=== PATIENT | female | born 1995 | race Caucasian/White ===

== ENCOUNTER → 2022-05-24 09:17 | Outpatient (CLI) | payer OTHER, SELFPAY | PROVIDERS: PCP Registered Nurse; Visit Provider Registered Nurse | DX: R30.0 Dysuria (principal) | CPT/HCPCS: 87077; 87086; 87186 ==

== ENCOUNTER → 2022-08-11 07:49 | Outpatient (CLI) | payer OTHER, SELFPAY | PROVIDERS: PCP Physician Assistant; Visit Provider Physician Assistant | DX: N39.0 Urinary tract infection, site not specified (principal) | CPT/HCPCS: 87077; 87086; 87147 ==

== ENCOUNTER → 2023-10-20 16:50 | Outpatient (CLI) | payer OTHER, SELFPAY | PROVIDERS: PCP Registered Nurse Diabetes Educator; Visit Provider Registered Nurse Diabetes Educator | DX: N89.8 Other specified noninflammatory disorders of vagina (principal) | CPT/HCPCS: 87210; 87220 ==

== ENCOUNTER → 2023-11-09 14:40 | Outpatient (CLI) | payer OTHER, SELFPAY ==
--- NOTE | 2023-11-09 14:42 | DI.US.S_ITS ---
PROCEDURE: US PELVIC COMPLETE INDICATIONS: DUB TECHNIQUE: Real-time scanning was performed of the pelvic organs, with image documentation. Additional endovaginal scanning was necessary due to incomplete visualization of the adnexal and endometrial structures by transabdominal scanning. COMPARISON: None. FINDINGS: Uterus: Uterus is anteverted and normal in size at 6.8 x 2.9 x 4.7 cm. The myometrium is homogeneous. The endometrium measures 3 mm combined thickness. IUD within the mid to lower uterine segment. Ovaries: The right ovary measures 2.2 x 3.4 x 2.3 cm, with a calculated ovarian volume of 9 cc. The left ovary measures 3.4 x 3.7 x 2.5 cm, with a calculated ovarian volume of 16 cc. The ovaries have a normal sonographic appearance. Less than 12 follicles can be seen in each ovary. No adnexal masses are seen. Other: No pathologic free abdominal or pelvic fluid. IMPRESSION: IUD within the mid to lower uterine segment. Consider adjustment or placement. We strive to produce accurate, complete, and clear reports of imaging services. To assist us in improving patient care, this report was composed using standard report templates and voice recognition software. Therefore, it may contain abnormal punctuation, insertions and/or omissions. Occasional wrong-word or sound-alike substitutions may occur. Though we review the report and make efforts to correct it, we do recommend that the report be read carefully in proper context to recognize any text inaccuracies. Dictated by: Anup Wisdom M.D. on 11/09/2023 at 16:12 Approved by: Anup Wisdom M.D. on 11/09/2023 at 16:14
== END ==
LOC: US 14:41
PROVIDERS: PCP Registered Nurse Diabetes Educator; Referring Provider Registered Nurse Diabetes Educator; Visit Provider Registered Nurse Diabetes Educator
DX: N93.9 Abnormal uterine and vaginal bleeding, unspecified (principal); Z97.5 Presence of (intrauterine) contraceptive device
CPT/HCPCS: 76856

== ENCOUNTER → 2023-12-08 13:02 | Outpatient (CLI) | payer OTHER, SELFPAY ==
[2023-12-08 13:42] LABS: Hemoglobin A1C% w Est Avg Glu 4.9 % (4.0-6.0)
[2023-12-08 14:31] LABS: Testosterone 47.1 ng/dL (5.71-77.0)
== END ==
LOC: LAB 13:03
PROVIDERS: PCP Registered Nurse Diabetes Educator; Referring Provider Student in an Organized Health Care Education/Training Program; Visit Provider Student in an Organized Health Care Education/Training Program
DX: E28.2 Polycystic ovarian syndrome (principal)
CPT/HCPCS: 36415; 82397; 83036; 83498; 84403

== ENCOUNTER → 2024-03-01 11:47 | Outpatient (CLI) | payer OTHER, SELFPAY ==
[2024-03-01 13:19] LABS: Add Manual Diff / Slide Review NO; Basophils Absolute Auto 0 /uL (0-100); Basophils Percent Auto 0.2 % (0-2); Eosinophils Absolute Auto 100 /uL (0-450); Eosinophils Percent Auto 2.5 % (2-4); Hemoglobin 14.3 g/dL (12.0-16.0); Lymphocytes Absolute Auto 1300 /uL (1100-4500); Lymphocytes Percent Auto 27.8 % (25-40); Mean Corpuscular HGB Conc 34.1 % (30-36); Mean Corpuscular Hemoglobin 30.7 PG (26-34); Mean Corpuscular Volume 90.2 fL (80-100); Monocytes Absolute Auto 200 /uL (0-900); Neutrophils Absolute Auto 3000 /uL (1500-7000); Neutrophils Percent Auto 64.5 % (50-75); Platelet Count 181 X10^3/uL (150-400); Red Blood Cell Count 4.66 X10^6/uL (4.0-5.2); White Blood Cell Count 4.6 X10^3/uL (4.5-11.0)
[2024-03-01 13:43] LABS: Alanine Aminotransferase 25 IU/L (<35); Albumin 4.7 g/dL (3.5-5.0); Albumin Globulin Ratio 1.6 (1.0-2.8); Alkaline Phosphatase 45 U/L (38-126); Aspartate Aminotransferase 27 IU/L (14-36); BUN Creatinine Ratio 16.3 (6-22); Bilirubin Total 0.4 mg/dL (0.2-1.3); Blood Urea Nitrogen 16 mg/dL (7-17); Calcium 9.6 mg/dL (8.4-10.2); Carbon Dioxide 22 mmol/L (22-32); Chloride 105 mmol/L (98-107); Estimated Glomerular Filt Rate > 60 mL/min (>60); Glucose 89 mg/dL (70-100); HEMOLYSIS < 15 (0-50); Potassium 4.3 mmol/L (3.4-5.1); Sodium 138 mmol/L (137-145); Total Protein 7.7 g/dL (6.3-8.2)
[2024-03-01 13:45] LABS: HEMOLYSIS < 15 (0-50); Iron 146 ug/dL (37-170)
[2024-03-01 13:56] LABS: Percent Iron Saturation 44 % (15-50); Total Iron Binding Capacity 333 ug/dL (265-497); Transferrin 286 mg/dL (206-381)
[2024-03-01 14:00] LABS: Free T3, Triiodothyronine Free 3.22 pg/mL (2.77-5.27); Free T4, Direct Thyroxine 1.22 ng/dL (0.78-2.19)
[2024-03-01 14:14] LABS: Thyroid Stimulating Hormone 1.05 uIU/mL (0.47-4.68)
[2024-03-01 14:33] LABS: Vitamin B12 850 pg/mL (239-931)
== END ==
PROVIDERS: PCP Registered Nurse Diabetes Educator; Referring Provider Physician Assistant; Visit Provider Physician Assistant
DX: R53.83 Other fatigue (principal); H02.539 Eyelid retraction unspecified eye, unspecified lid; G47.9 Sleep disorder, unspecified
CPT/HCPCS: 36415; 80053; 82607; 83519; 83540; 83550; 84439; 84443; 84481; 85025

== ENCOUNTER → 2024-06-14 15:02 | Outpatient (CLI) | payer OTHER, SELFPAY | PROVIDERS: PCP Registered Nurse Diabetes Educator; Referring Provider Registered Nurse Diabetes Educator; Visit Provider Registered Nurse Diabetes Educator | DX: R06.09 Other forms of dyspnea (principal); R07.9 Chest pain, unspecified; R42 Dizziness and giddiness | CPT/HCPCS: 93242; 93244 ==

== ENCOUNTER → 2024-08-10 15:16 | Outpatient (CLI) | payer OTHER, SELFPAY ==
[2024-08-10 21:24] LABS: Urine N gonorrhoeae NOT DETECTED
[2024-08-10 21:26] LABS: Urine Chlamydia NOT DETECTED
== END ==
PROVIDERS: PCP Registered Nurse Diabetes Educator; Visit Provider Student in an Organized Health Care Education/Training Program
DX: Z11.3 Encounter for screening for infections with a predominantly sexual mode of transmission (principal)
CPT/HCPCS: 87491; 87591

== ENCOUNTER → 2024-08-23 13:57 | Outpatient (CLI) | payer OTHER, SELFPAY ==
[2024-08-23 15:23] LABS: Natera Collection Specimen Collected
[2024-08-23 15:34] LABS: Add Manual Diff / Slide Review NO; Basophils Absolute Auto 0 /uL (0-100); Basophils Percent Auto 0.3 % (0-2); Eosinophils Absolute Auto 100 /uL (0-450); Eosinophils Percent Auto 0.9 % (2-4); Hematocrit 39.1 % (36-46); Hemoglobin 13.5 g/dL (12.0-16.0); Lymphocytes Absolute Auto 1400 /uL (1100-4500); Mean Corpuscular HGB Conc 34.5 % (30-36); Mean Corpuscular Hemoglobin 31.1 PG (26-34); Mean Corpuscular Volume 90.2 fL (80-100); Monocytes Absolute Auto 400 /uL (0-900); Neutrophils Absolute Auto 7700 /uL (1500-7000); Neutrophils Percent Auto 79.8 % (50-75); Platelet Count 182 X10^3/uL (150-400); Red Blood Cell Count 4.33 X10^6/uL (4.0-5.2); Red Cell Distribution Width 13.1 % (11.6-14.8); White Blood Cell Count 9.6 X10^3/uL (4.5-11.0)
[2024-08-23 15:41] LABS: Hemoglobin A1C% w Est Avg Glu 4.8 % (4.0-6.0)
[2024-08-24 05:10] LABS: RPR Screen Non Reactive (Non Reactive); Varicella IgG Antibody Reactive (Non Reactive)
[2024-08-24 17:23] LABS: Hepatitis B Surface Antigen NEGATIVE s/c (NEGATIVE)
[2024-08-24 17:36] LABS: HIV 1 & 2 Ab/Ag 4th Gen Combo NEGATIVE (NEGATIVE); Hep C Virus Ab w/Reflex Quant NEGATIVE s/c (NEGATIVE)
== END ==
PROVIDERS: PCP Registered Nurse Diabetes Educator; Referring Provider Student in an Organized Health Care Education/Training Program; Visit Provider Student in an Organized Health Care Education/Training Program
DX: Z34.02 Encounter for supervision of normal first pregnancy, second trimester (principal); E28.2 Polycystic ovarian syndrome
CPT/HCPCS: 36415; 80055; 83036; 86787; 86803; 86850; 86900; 86901; 87086; 87147; 87389

== ENCOUNTER → 2024-09-20 16:48 | Outpatient (CLI) | payer OTHER, SELFPAY | PROVIDERS: PCP Registered Nurse Diabetes Educator; Visit Provider Nurse Practitioner Family | DX: B37.9 Candidiasis, unspecified (principal); R30.0 Dysuria | CPT/HCPCS: 87086; 87210 ==

== ENCOUNTER → 2024-10-16 14:04 | Outpatient (CLI) | payer OTHER, SELFPAY ==
[2024-10-16 20:04] LABS: Appearance Urine UA CLEAR; Bilirubin Urine UA NEGATIVE (NEGATIVE); Color Urine UA YELLOW; Glucose Urine UA NEGATIVE (Negative); Ketones Urine UA NEGATIVE (NEGATIVE); Leukocyte Esterase Urine UA NEGATIVE (NEGATIVE); Nitrite Urine UA NEGATIVE (Negative); Occult Blood Urine UA NEGATIVE (Negative); Protein Urine UA NEGATIVE (Negative); Urobilinogen Urine UA 0.2 E.U./dL (0.2)
[2024-10-16 20:08] LABS: pH Urine UA 6.5 (4.5-8.0)
[2024-10-16 20:11] LABS: Bacteria Urine Occasional (0-1); Culture Indicated Urine Cult Not Indicated; RBC Urine 0-1/HPF (0-5/HPF); Squamous Epithelial Cell Urine 0-1 /HPF (0-5/HPF); Urine Volume 10mL (spun); WBC Urine 0-1/HPF (0-5/HPF)
== END ==
PROVIDERS: PCP Registered Nurse Diabetes Educator; Visit Provider Student in an Organized Health Care Education/Training Program
DX: R82.71 Bacteriuria (principal); B37.9 Candidiasis, unspecified
CPT/HCPCS: 81001; 87480; 87510; 87660

== ENCOUNTER → 2024-11-01 14:39 | Outpatient (CLI) | payer OTHER, SELFPAY ==
--- NOTE | 2024-11-01 14:40 | DI.US.S_ITS ---
PROCEDURE: US OB >= 14 WEEKS FETUS INDICATIONS: 20 weeks anatomy scan OUTSIDE/PRIOR DATING DATA: Last menstrual period (LMP): 06/13/2024. LMP-based estimated date of delivery (ANEL): 03/20/2025. First dating scan (date and location): 08/10/2024. Estimated date of delivery (ANEL) from first dating scan: 03/18/2025. The calculations are made using the working ANEL of 03/20/2025. TECHNIQUE: Real-time scanning was performed of the fetus, with image documentation and biometric measurements. Endovaginal scanning: No COMPARISON: None. FINDINGS: General: A single living intrauterine gestation is present. Presentation: Vertex. Placenta: Placental position is posterior , without previa. Amniotic fluid index: 12.5 cm, normal range is 5-24 cm. Single deepest vertical pocket is 4.1 cm. heart rate: 139 beats per minute. Maternal cervical canal: 5.5 cm long. Normal lower limit is 2.5 cm. biometrics: Biparietal diameter: 4.7 cm, 20 week 2 day Head circumference: 18.4 cm, 20 week 5 day Abdominal circumference: 15.4 cm, 20 week 4 day Femur length: 3.4 cm, 20 week 5 day Clinically estimated gestational age: 20 week 1 day Composite gestational age from present scan: 20 week 4 day Estimated weight and percentile: 366 g, 73 percentile Anatomic survey: Neuro: Ventricles are non-dilated at less than 10 mm. Cisterna magna is normal at 3-11 mm. Cerebellum is normal in size and morphology. Nuchal skin fold: Normal at less than 6 mm between 14-21 weeks gestational age. Face: Nose and lips, facial profile are normal. Spine: No evidence for spina bifida. Heart: 4-chambered heart is present, with normal ventricular outflow tracts. Diaphragm: Diaphragm is intact. Stomach: Left-sided stomach is present. Kidneys: No hydronephrosis. Normal is less than 5 mm in 2nd trimester, less than 7 mm in 3rd trimester. Cord: 3-vessel cord has orthotopic insertion. Bladder: Normal in size. Extremities: All 4 extremities identified. IMPRESSION: Single live intrauterine consistent with 20 week 4 day gestation by current ultrasound. Normal anatomic survey Approved by: Mike Mcdowell M.D. on 11/02/2024 at 12:39
== END ==
PROVIDERS: PCP Registered Nurse Diabetes Educator; Referring Provider Student in an Organized Health Care Education/Training Program; Visit Provider Student in an Organized Health Care Education/Training Program
DX: Z34.02 Encounter for supervision of normal first pregnancy, second trimester (principal); Z3A.20 20 weeks gestation of pregnancy
CPT/HCPCS: 76811

== ENCOUNTER → 2024-11-14 14:03 | Outpatient (CLI) | payer OTHER, SELFPAY ==
[2024-11-16 20:11] LABS: AFP Value 71.4 ng/mL (.); Insulin Dep Diabetes No (.); OSBR Risk 1IN 7850 (.); Results Report (.); Test Results *Screen Negative* (.)
== END ==
LOC: LAB 14:04
PROVIDERS: Obstetrics & Gynecology; PCP Registered Nurse Diabetes Educator; Referring Provider Registered Nurse Diabetes Educator; Visit Provider Emergency Medicine
DX: Z36.0 Encounter for antenatal screening for chromosomal anomalies (principal)
CPT/HCPCS: 36415; 82105

== ENCOUNTER → 2024-12-25 11:35 | Outpatient (CLI) | payer OTHER, SELFPAY ==
[2024-12-25 13:41] LABS: Add Manual Diff / Slide Review NO; Basophils Absolute Auto 0 /uL (0-100); Eosinophils Absolute Auto 100 /uL (0-450); Eosinophils Percent Auto 0.9 % (2-4); Hematocrit 38.2 % (36-46); Hemoglobin 13.2 g/dL (12.0-16.0); Lymphocytes Absolute Auto 1100 /uL (1100-4500); Lymphocytes Percent Auto 10.5 % (25-40); Mean Corpuscular HGB Conc 34.5 % (30-36); Mean Corpuscular Hemoglobin 32.3 PG (26-34); Mean Corpuscular Volume 93.7 fL (80-100); Monocytes Absolute Auto 500 /uL (0-900); Monocytes Percent Auto 4.7 % (3-14); Neutrophils Absolute Auto 8500 /uL (1500-7000); Neutrophils Percent Auto 83.9 % (50-75); Platelet Count 146 X10^3/uL (150-400); Red Blood Cell Count 4.08 X10^6/uL (4.0-5.2); Red Cell Distribution Width 13.6 % (11.6-14.8); White Blood Cell Count 10.1 X10^3/uL (4.5-11.0)
[2024-12-25 15:01] LABS: GTT (PREG) 1 Hour PP 50gm Dose 104 mg/dL (76-139)
== END ==
LOC: LAB 11:36
PROVIDERS: PCP Registered Nurse Diabetes Educator; Referring Provider Registered Nurse Diabetes Educator; Visit Provider Obstetrics & Gynecology
DX: Z34.02 Encounter for supervision of normal first pregnancy, second trimester (principal); Z3A.26 26 weeks gestation of pregnancy
CPT/HCPCS: 36415; 82950; 85025

== ENCOUNTER → 2025-01-03 16:11 | Outpatient (CLI) | payer OTHER, SELFPAY | PROVIDERS: PCP Registered Nurse Diabetes Educator; Visit Provider Obstetrics & Gynecology | DX: O23.593 Infection of other part of genital tract in pregnancy, third trimester (principal) | CPT/HCPCS: 87480; 87510; 87660 ==

== ENCOUNTER → 2025-01-17 14:32 | Outpatient (CLI) | payer OTHER, SELFPAY ==
[2025-01-17 15:03] LABS: Add Manual Diff / Slide Review NO; Hematocrit 39.4 % (36-46); Hemoglobin 13.5 g/dL (12.0-16.0); Lymphocytes Absolute Auto 1300 /uL (1100-4500); Mean Corpuscular HGB Conc 34.3 % (30-36); Mean Corpuscular Hemoglobin 31.8 PG (26-34); Mean Corpuscular Volume 92.6 fL (80-100); Platelet Count 153 X10^3/uL (150-400)
[2025-01-17 16:03] LABS: Alanine Aminotransferase 23 IU/L (<35); Albumin 3.6 g/dL (3.5-5.0); Albumin Globulin Ratio 1.4 (1.0-2.8); Alkaline Phosphatase 92 U/L (38-126); Blood Urea Nitrogen 17 mg/dL (7-17); Calcium 9.1 mg/dL (8.4-10.2); Carbon Dioxide 17 mmol/L (22-32); Chloride 107 mmol/L (98-107); Estimated Glomerular Filt Rate > 60 mL/min (>60); Globulin 2.6 g/dL (1.7-4.1); Glucose 80 mg/dL (70-99); HEMOLYSIS < 15 (0-50); Potassium 4.0 mmol/L (3.4-5.1); Sodium 133 mmol/L (137-145); Total Protein 6.2 g/dL (6.3-8.2)
[2025-01-17 16:26] LABS: Protein (Total) Urine Random 7 mg/dL (0-12); Protein Creatinine Ratio Urine 0.21 GRAM/24H
== END ==
PROVIDERS: PCP Registered Nurse Diabetes Educator; Referring Provider Obstetrics & Gynecology; Visit Provider Obstetrics & Gynecology
DX: Z34.93 Encounter for supervision of normal pregnancy, unspecified, third trimester (principal); Z3A.31 31 weeks gestation of pregnancy
CPT/HCPCS: 36415; 80053; 82570; 84156; 85025

== ENCOUNTER → 2025-01-30 13:38 | Outpatient (CLI) | payer OTHER, SELFPAY ==
[2025-02-01 12:40] LABS: Trichomoas vaginalis Negative (Negative)
== END ==
PROVIDERS: PCP Registered Nurse Diabetes Educator; Visit Provider Student in an Organized Health Care Education/Training Program
DX: N89.8 Other specified noninflammatory disorders of vagina (principal)
CPT/HCPCS: 87480; 87510; 87660

== ENCOUNTER → 2025-02-06 11:10 | Outpatient (CLI) | payer OTHER, SELFPAY ==
[2025-02-08 09:37] LABS: Mycoplasma genitalium, NAA Negative (Negative)
== END ==
PROVIDERS: PCP Registered Nurse Diabetes Educator; Visit Provider Obstetrics & Gynecology
DX: O23.593 Infection of other part of genital tract in pregnancy, third trimester (principal)
CPT/HCPCS: 87563; 87798

== ENCOUNTER 2025-02-08 20:59 | Emergency (ER) | payer OTHER, SELFPAY ==
[2025-02-08 21:08] VITALS: BP 142/65; PULSE 101; O2SAT 96
[2025-02-08 21:10] VITALS: BP 142/65; PULSE 97; RESP 31; TEMP 36.2; O2SAT 96; BMI 36.9
[2025-02-08 21:14] VITALS: BP 127/56; PULSE 107; O2SAT 95
--- NOTE | 2025-02-08 21:18 | EKG_ITS ---
[address] [address] Test Date: 2025-02-08 Pat Name: Mara Cheng Department: Room: Gender: Female Group Reservations Coordinator: NILDA : 1995 Requested By: Order Number: [id number] Reading MD: Florentino Payne Measurements Intervals [place] Rate: 97 P: 41 AR: 148 QRS: 23 QRSD: 76 T: 27 QT: 336 QTc: 426 Interpretive Statements Normal sinus rhythm Low voltage QRS Cannot rule out Anterior infarct , age undetermined Electronically Signed On 02-09-2025 8:30:12 PDT by Florentino Payne
[2025-02-08 21:22] VITALS: BP 127/56
--- NOTE | 2025-02-08 21:31 | ED.CHESTPAIN ---
HPI - Chest Pain General Chief Complaint: Chest Pain Stated Complaint: Left Side ChestPain, 34wks Preg Time Seen by Provider: 02/08/25 21:31 Source: patient Mode of arrival: Ambulatory History of Present Illness HPI narrative: 30-year-old female patient, otherwise healthy, 1 para 0 at 34 weeks EGA who complains of left-sided pleuritic pain for 36 hours now. No fever, chills or cough. Pain is worse with deep breathing. No injury and no squeezing chest pain. Duration: intermittent Onset: during rest Pain location: left chest Quality: sharp Related Data Home Medications ?Medication ?Instructions ?Recorded ?Confirmed vitamin-ferrous sulfate tab PO 08/08/24 02/06/25 27 mg iron-folic acid 0.8 mg tablet Previous Rx's ?Medication ?Instructions ?Recorded bupropion HCl 300 mg 24 hr tablet, 300 mg PO QAM #90 tabs 04/17/24 extended release (Wellbutrin XL) fluconazole 150 mg tablet 150 mg PO Q3D 2 doses #2 tabs 11/29/24 clotrimazole 1 % vaginal cream 1 appful vaginal BEDTIME #45 grams 12/20/24 (Clotrimazole-7) Allergies Allergy/AdvReac Type Severity Reaction Status Date / Time No Known Drug Allergies Allergy Verified 02/06/25 10:48 Review of Systems Review of Systems ROS Unobtainable: All systems reviewed & are unremarkable except as noted in HPI and below Cardiovascular Cardiovascular: Reports as per HPI, Reports chest pain and Denies dyspnea Respiratory Respiratory: Reports as per HPI, Denies cough and Denies dyspnea Patient History Medical History (Updated 02/08/25 @ 22:48 by Aravind Reyes MD) Maternal excessive weight gain Depression (03/14/16) Migraine without aura PCOS (polycystic ovarian syndrome) Anxiety Surgical History [place] teeth removed (06/22/14) Hx of knee surgery Family History (Updated 08/10/24 @ 15:51 by Bela Woods DO) Father Pre-diabetes Hypertension Sister Seizure disorder Hypoglycemia Granddaughter Scleroderma Heart disease Grandmother Dementia Grandfather Heart disease Aunt Breast cancer Thyroid cancer Aunt Depression Diabetes mellitus Aunt OCD (obsessive compulsive disorder) Uncle Obesity Mother Pre-eclampsia Social History marital status: number of children: 0 household members: spouse lives independently: Yes caregiver/support person: No housing: house pets and animals: No education level: master's degree (education) 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) current occupational exposures/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: Yes (biology 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 w/ dissection) special odette needs: No travel history: recent ([place]) seatbelt use: always helmet use: Yes water heater temp set < 120 deg: Yes working smoke detector in home: Yes fire extinguisher in home: Yes carbon monox detector in home: Yes firearms in home: Yes firearms unloaded and locked: Yes do you feel safe at home: Yes Smoking Status: Never smoker second hand exposure: No alcohol intake: former (very rarely when not ) substance use type: does not use during the past year weight has: increased > 10 lbs (~15 lb in last 4 months) well-balanced diet: daily or most days daily servings fruits/ve-4 caffeine: Yes (single cup tea) Type(s) of exercise: walking, bicycling and weight lifting Smoking Status: Never smoker Exam Narrative Exam Narrative: General: Alert and conversant. No distress. Appears well nourished and well hydrated Craniofacial: No evidence of trauma. Nontender and no swelling. Eyes: PERRLA EOMI conjunctiva clear HEENT: Oropharynx clear with no swelling, exudate or asymmetry of the pharynx. Nares clear. No sinus tenderness Neck: No tenderness or adenopathy. No meningismus. No JVD Lungs: Clear to auscultation with good air movement. No wheezing, rales or rhonchi. No respiratory distress Cardiac: Regular rate and rhythm with no appreciable murmur or gallop Abdomen: Soft, nontender with no distention or masses. Normal bowel sounds. No rebound or guarding Musculoskeletal: Exam of the extremities, axial spine and ribcage reveals no deformity, bony tenderness or swelling. Range of motion intact Neuro: Alert and oriented. Cranial nerves, motor, sensory and cerebellar all grossly intact. No focal deficit Skin: Warm and normal color. No rashes Psychological: Normal affect and interaction. No evidence of delusion or psychosis. Normal mood. Initial Vital Signs Initial Vital Signs: Vital Signs Pulse Rate 101 H 02/08/25 21:08 Blood Pressure 142/65 H 02/08/25 21:08 Pulse Oximetry 96 02/08/25 21:08 Course Orders Ordered: ED Orders 02/08/25 21:04 EKG-12 Lead Stat 02/08/25 21:30 Troponin & CK Cardiac Panel Stat Discontinued Medications Aspirin (Aspirin 81 Mg Chew Tab) 324 mg PO NOW ONE Stop: 02/08/25 21:24 Last Admin: 02/08/25 21:40 Dose: Not Given Documented By: GW Vital Signs Vital signs: Vital Signs - 8 hr 02/08/25 21:08 02/08/25 21:08 02/08/25 21:10 Temperature 97.1 F L Pulse Rate 101 H 97 H Respiratory Rate 31 H Blood Pressure 142/65 H 142/65 H Pulse Oximetry 96 96 Oxygen Delivery Method Room Air 02/08/25 21:14 02/08/25 21:14 02/08/25 21:22 Temperature Pulse Rate 107 H Respiratory Rate Blood Pressure 127/56 L 127/56 L Pulse Oximetry 95 Oxygen Delivery Method 02/08/25 22:27 02/08/25 22:27 Temperature Pulse Rate 104 H Respiratory Rate Blood Pressure 122/56 L Pulse Oximetry 97 Oxygen Delivery Method [facility] - Chest Pain Lab Data Labs: Lab Results 02/08/25 Range/Units 21:30 Total Creatine Kinase 33 (30-135) U/L Troponin I < 0.012 (0.01-0.034) ng/mL Urine Dip Bedside Urine Glucose Negative Bedside Urine Bilirubin - Negative Bedside Urine Ketone - Negative Urine Specific Darling 1.010 Bedside Urine Occult Blood - Negative Bedside Urine pH 7.0 Bedside Urine Protein - Negative Bedside Urine Urobilinogen - Negative Bedside Urine Nitrite - Negative Bedside Urine Leukocytes + 70 Esterase ECG Data Attestation: I personally reviewed and interpreted this ECG as follows: (Sinus rhythm. Low-voltage QRS. Poor R-wave progression.) [facility] Narrative Medical decision making narrative: Patient has left-sided pleuritic chest pain with negative troponin and EKG. Symptoms possibly related . Does not have pneumonia on physical exam. Lung auscultation and oxygen saturation are both reassuring. I do not believe she needs chest x-ray, especially given her 3rd trimester . Patient given home care instructions and information on pleuritic pain. Follow up with primary care. Return to the ER if worse. Discharge Plan Departure Patient Disposition: Home Clinical Impression: Pleuritic chest pain Instructions: DI for Atypical Chest Pain, DI for Pleurisy Activity Restrictions/Additional Instructions: Assessment: Sharp left-sided chest pain typical of pleuritic chest pain. Noncardiac Plan: Acetaminophen as needed. Rest and supportive care. Follow up with your doctor for further management. Return to the ER if worse Prescriptions: No Action fluconazole 150 mg tablet 150 mg PO Q3D Qty: 2 0RF clotrimazole [Clotrimazole-7] 1 % cream 1 appful vaginal BEDTIME Qty: 45 0RF vit-ferrous sulfat-FA 27 mg iron- 0.8 mg tablet PO bupropion HCl [Wellbutrin XL] 300 mg tablet extended release 24 hr 300 mg PO QAM Qty: 90 3RF Referrals: Klever Pacheco ARNP [Primary Care Provider, Medical] Stand Alone Forms: Patient Portal/API
[2025-02-08 21:59] LABS: Creatine Kinase 33 U/L (30-135)
[2025-02-08 22:12] LABS: Troponin I < 0.012 ng/mL (0.01-0.034)
[2025-02-08 22:27] VITALS: BP 122/56; PULSE 104; O2SAT 97
== END 2025-02-08 23:02 | disposition home or self-care (01) ==
PROVIDERS: Emergency Provider Emergency Medicine; PCP Registered Nurse Diabetes Educator
DX: O26.893 Other specified pregnancy related conditions, third trimester (principal); R07.89 Other chest pain; Z3A.34 34 weeks gestation of pregnancy
CPT/HCPCS: 36415; 81003; 82550; 84484; 93005; 99283; 99284

== ENCOUNTER 2025-03-20 16:14 | Outpatient (CLI) | payer OTHER, SELFPAY | END 2025-03-20 17:15 | disposition home or self-care (01) | LOC: LABOR 17:11 → OB 03-21 10:50 | PROVIDERS: PCP Registered Nurse Diabetes Educator; Referring Provider Obstetrics & Gynecology; Visit Provider Obstetrics & Gynecology | DX: O48.0 Post-term pregnancy (principal); Z3A.40 40 weeks gestation of pregnancy | CPT/HCPCS: 59025; 76815; G0378; G0379 ==

== ENCOUNTER 2025-03-27 16:39 | Inpatient (IN) | payer OTHER, SELFPAY ==
[2025-03-27 17:21] LABS: Add Manual Diff / Slide Review NO; Hematocrit 40.5 % (36-46); Hemoglobin 13.7 g/dL (12.0-16.0); Lymphocytes Absolute Auto 1600 /uL (1100-4500); Mean Corpuscular HGB Conc 33.9 % (30-36); Mean Corpuscular Hemoglobin 31.5 PG (26-34); Mean Corpuscular Volume 92.8 fL (80-100); Platelet Count 115 X10^3/uL (150-400)
--- NOTE | 2025-03-27 18:26 | PM.OBHP.IH.1 ---
OB HPI Date/Time Date of admission: 03/27/25 Date Patient Seen: 03/27/25 Time Patient Seen: 18:26 History of Present Condition Chief complaint: IUP, 41+0 wks, GBS POS, adm for ripening/induction Date of Last Menstrual Period: 06/11/25 ANEL Calculator Estimated Delivery Date Method Current WG Current Estimate 03/20/25 LMP (Certain) 41w 0d Other Estimates 03/18/25 Ultrasound #1 41w 2d Estimated Gestational Age (weeks): 41+0 : 1 Narrative: Mara is a 30-year-old primigravida now at 41+ 0 weeks gestational age by early 1st trimester ultrasound who was admitted for cervical ripening and induction due to postdate status. course has been uneventful, dating a solid, and milestones have been appropriate throughout. Patient is GBS positive. care: good care Dating criteria OB: LMP confirmed by 1st trimester US Ultrasounds: normal 1st trimester US and normal mid trimester US Obstetrical complications: none Indications Indication for induction OB: post dates Preadmission Labs Last OB Lab Results: Blood Type B Positive Today, 17:00 Antibody Screen Negative Today, 17:00 Hct, (36-46) 40.5 % Today, 17:00 Hgb, (12.0-16.0) 13.7 g/dL Today, 17:00 Hep Bs Antigen, (NEGATIVE) Negative s/c 08/23/24, 14:23 Hepatitis C Antibody, (NEGATIVE) Negative s/c 08/23/24, 14:23 Rubella Antibody, (>15) 104.0 IU/mL 08/23/24, 14:23 VZV IgG Antibody, (Non Reactive) Reactive 08/23/24, 14:23 Glucose 1 Hr 50 gm, (76-139) 104 mg/dL 12/25/24, 13:06 Hemoglobin A1c, (4.0-6.0) 4.8 % 08/23/24, 14:23 Group B Strep (PCR) Pos for grp b strep H 02/27/25, 10:44 -: Chlamydia screen: negative, Gonorrhea screen: negative and Urine: negative -: PAP smear: Normal Genetic Screens: Cell-free DNA: Normal and Alpha-fetoprotein: Normal External Labs -: Urine: negative Prior (ies) Hx # Term Pregnancies: 0 Evaluation Evaluation Baseline heart rate: 125 Variability: Marked (>25) monitor accelerations: Present Monitor Decelerations: Absent Uterine Contraction Intensity: Mild Category of Tracing: Reactive Status: Category l Dilation (cm): 1 Effacement (%): 90 Dilation: Closed Effacement: >/=80% station: -1 Position of cervix: posterior Consistency: soft Ramos score: 7 PFSH Medical History (Updated 03/27/25 @ 16:41 by Misbah Yoon MD) Maternal excessive weight gain Depression (03/14/16) Migraine without aura PCOS (polycystic ovarian syndrome) Anxiety Surgical History [place] teeth removed (06/22/14) Hx of knee surgery Family History (Updated 08/10/24 @ 15:51 by Bela Woods DO) Father Pre-diabetes Hypertension Sister Seizure disorder Hypoglycemia Granddaughter Scleroderma Heart disease Grandmother Dementia Grandfather Heart disease Aunt Breast cancer Thyroid cancer Aunt Depression Diabetes mellitus Aunt OCD (obsessive compulsive disorder) Uncle Obesity Mother Pre-eclampsia Social History marital status: number of children: 0 household members: spouse lives independently: Yes caregiver/support person: No housing: house pets and animals: No education level: master's degree (education) 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) current occupational exposures/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: Yes (biology classes w/ dissection) special odette needs: No travel history: recent ([facility]) seatbelt use: always helmet use: Yes water heater temp set < 120 deg: Yes working smoke detector in home: Yes fire extinguisher in home: Yes carbon monox detector in home: Yes firearms in home: Yes firearms unloaded and locked: Yes do you feel safe at home: Yes second hand exposure: No alcohol intake: former (very rarely when not ) substance use type: does not use during the past year weight has: increased > 10 lbs (~15 lb in last 4 months) well-balanced diet: daily or most days daily servings fruits/ve-4 caffeine: Yes (single cup tea) Type(s) of exercise: walking, bicycling and weight lifting Meds Home Medications and Allergies Home Medications ?Medication ?Instructions ?Recorded ?Confirmed ?Type bupropion HCl 300 mg 24 hr tablet, 300 mg PO QAM #90 tabs 10/14/24 09/23/25 Rx extended release (Wellbutrin XL) vitamin-ferrous sulfate tab PO 08/08/24 03/27/25 History 27 mg iron-folic acid 0.8 mg tablet fluconazole 150 mg tablet 150 mg PO Q3D 2 doses #2 tabs 11/29/24 03/27/25 Rx clotrimazole 1 % vaginal cream 1 appful vaginal BEDTIME #45 grams 12/20/24 03/27/25 Rx (Clotrimazole-7) breast pump (Smart Pump 3.0 Double #1 ea 02/27/25 03/27/25 Rx Electric BreastPump Lifestyle Set device) Allergies Allergy/AdvReac Type Severity Reaction Status Date / Time No Known Drug Allergies Allergy Verified 03/27/25 15:48 Review of Systems Review of Systems Narrative: Problem-specific ROS positives included in HPI OB Exam HENMT Head: normal to inspection, normocephalic and atraumatic Eyes General: appearance normal, both eyes and all related structures Resp Effort & Inspection: normal respiratory effort and able to speak in complete sentences Auscultation: clear to auscultation bilaterally Cardio Rate: regular rate Rhythm: regular rhythm Heart Sounds: S1 normal, S2 normal and no murmurs Extremities Lower extremity: Yes normal to inspection GI Inspection: normal to inspection Palpation: Yes soft and Yes no hepatosplenomegaly External Female Exam: Yes normal external appearance Uterus Location (Fundal Height): 36 Presentation: vertex Estimated Weight (lbs): 8 Objective Labs 03/27/25 17:00 Labs: Laboratory Results - last 24 hr 03/27/25 17:00 WBC 9.1 RBC 4.36 Hgb 13.7 Hct 40.5 MCV 92.8 MCH 31.5 MCHC 33.9 RDW 12.9 Plt Count 115 L Neut % (Auto) 74.8 Lymph % (Auto) 17.6 L [place] % (Auto) 6.4 Eos % (Auto) 1.0 L Baso % (Auto) 0.2 Neut # (Auto) 6800 Lymph # (Auto) 1600 [place] # (Auto) 600 Eos # (Auto) 100 Baso # (Auto) 0 Blood Type B Positive Antibody Screen Negative Assessment and Plan Assessment and Plan Assessment and Plan narrative: ASSESSMENT 1. Intrauterine , 41+ 0 weeks gestational age 2. GBS positive status PLAN 1. Admit for ripening and induction 2. See admission orders Time-Based Coding :: [TOTAL MINUTES] spent with patient and on the chart (including review of chart, obtaining history, exam, reviewing outside data, placing orders, documenting exam and treatment plan, and counseling patient) on [DATE].
[2025-03-28] MEDS: OXYTOCIN PREMIX 30 UNIT/500 ML PLAST..BAG IV (00:52)
[2025-03-28] MEDS: LACTATED RINGERS 1,000 ML 100 ML IV (00:52)
[2025-03-28] MEDS: LACTATED RINGERS 1,000 ML 999 ML IV (05:02)
--- NOTE | 2025-03-28 05:58 | PM.AN.REGBLK ---
[facility] <[facility] CRNA - Last Filed: 03/28/25 06:05> Pre-procedure Procedure: Continuous Lumbar Epidural for L&D (DPE) Attending OB provider: Misbah Yoon PMH/LOKI narrative: See pre-anesthesia record PSH/Anesthesia history narrative: See pre-anesthesia record Exam narrative: 41+1 here for IOL. Called to bedside to place epidural for labor pain analgesia. ASA Class: II Labs: Hct 40.5 % (36-46) 03/27/25 17:00 Plt Count 115 X10^3/uL (150-400) L 03/27/25 17:00 Medications: Current Medications Generic Name Dose Route Start Last Admin Trade Name Freq PRN Reason Stop Dose Admin Calcium Carbonate 1,000 mg 03/27/25 17:08 Calcium Carbonate 500 Mg Tab PO Q2HR PRN Dyspepsia Carboprost Tromethamine 250 mcg 03/27/25 17:08 Carboprost 250 Mcg/Ml Ampul IM Q90M PRN Bleeding Fentanyl 50 mcg 03/27/25 17:08 Fentanyl 100 Mcg/2 Ml Inj IV Q1H PRN Pain, Moderate (4-6) Oxytocin/Lactated Ringer's 30 unit in 500 mls @ 200 mls/hr 03/27/25 17:08 Oxytocin Premix IV CONT PRN Bleeding Protocol Ampicillin Sodium 1,000 mg/ 100 mls @ 200 mls/hr 03/27/25 21:30 03/27/25 21:30 Sodium Chloride IV Not Given Q4H JAGRUTI Tranexamic Acid 1,000 mg/ 100 mls @ 600 mls/hr 03/27/25 18:05 Sodium Chloride IV NOW PRN Bleeding Lactated Ringer's 1,000 mls @ 100 mls/hr 03/27/25 23:11 03/28/25 05:02 Lactated Ringers IV 999 mls/hr CONT PRN Administration Labor Induction Oxytocin/Lactated Ringer's 30 unit in 500 mls @ 2 mls/hr 03/28/25 00:34 03/28/25 00:52 Oxytocin Premix IV 2 milliunit/min TITRATE JAGRUTI 2 mls/hr Protocol Administration 2 MILLIUNIT/MIN Lidocaine HCl 20 ml 03/27/25 17:08 Lidocaine 1% 20 Ml INJ INTRA-OP PRN Post Delivery Methylergonovine Maleate 0.2 mg 03/27/25 17:08 Methylergonovine 0.2 Mg Tablet PO Q6HR PRN Heavy Bleeding Methylergonovine Maleate 0.2 mg 03/27/25 18:05 Methylergonovine 0.2 Mg/Ml Vial IM NOW PRN Bleeding Mineral Oil 30 ml 03/27/25 17:08 Mineral Oil 30 Ml Udc TOP PRN PRN Version Misoprostol 800 mcg 03/27/25 18:05 Misoprostol 200 Mcg Tablet MI NOW PRN Bleeding Misoprostol 400 mcg 03/27/25 18:05 Misoprostol 200 Mcg Tablet SL NOW PRN Bleeding Naloxone HCl 0.2 mg 03/27/25 17:08 Naloxone 0.4 Mg/Ml Vial IV Q2MIN PRN Opiate Reversal Ondansetron HCl 4 mg 03/27/25 17:08 Ondansetron 4 Mg/2 Ml Inj IV Q4HR PRN Nausea And Vomiting Oxytocin 10 unit 03/27/25 17:08 Oxytocin 10 Unit/Ml Vial IM NOW PRN Bleeding Zolpidem Tartrate 5 mg 03/27/25 18:10 Zolpidem 5 Mg Tablet PO BEDTIME PRN Sleep Allergies: Allergies Allergy/AdvReac Type Severity Reaction Status Date / Time No Known Drug Allergies Allergy Verified 03/27/25 18:51 Procedure Insertion date: 03/28/25 Insertion time: 05:11 Prep/Local: betadine x3 (Chloraprep) and 1% lidocaine (3ml) Interspace: L3-L4 Patient position: sitting Needle: 18 gauge Hustead (27 ga pencan spinal needle for DPE) Loss of resistance with: saline FLORA at (cm): 8 Catheter placed at SKIN (cm): 16 Catheter in SPACE (cm): 8 Sensory level: t11 Insertion: Yes CSF, No Blood, No Paresthesia with insertion, No Paresthesia with injection and No Test dose reaction Initial Medications TEST DOSE time: 05:21 BOLUS DOSE time: 05:35 BOLUS DOSE (mL): 7 BOLUS DOSE med: other (bolus from pump) Infusion INFUSION: 0.125% bupivacaine and with fentanyl 2 mcg/mL Initial rate (mL/hr): 7 (4ml Q15min PCEA) Post-procedure Anesthesia date START: 03/28/25 Anesthesia time START: 05:03 <Adia Adams CRNA - Last Filed: 03/30/25 09:52> Post-procedure Anesthesia date END: 03/28/25 Anesthesia time END: 11:38 Post-procedure Anesthesia Assessment: Yes CV function: HR/BP stable, Yes Resp function: RR/sat/airway adequate, Yes Post-op hydration adequate, Yes Pain control adequate, Yes Nausea & vomiting absent, Yes Temperature > 36 C, Yes Mental status appropriate and No Anesthesia complications
--- NOTE | 2025-03-28 10:10 | PM.OBPNLAB ---
Date/Time Date Patient Seen: 03/28/25 Time Patient Seen: 06:45 Pain Control Pain control: tolerating well and epidural Pelvic Exam Dilation (cm): 4 Effacement (%): 90 station: -2 Amniotic membrane status: Ruptured (SROM, clear fluid) Comments: 1st dose of antibiotic prophylaxis for GBS has been given Contractions Monitor mode: External Pitocin rate (mU/min): 3 Contraction frequency (min): 4 Contraction pattern: Regular Contraction phase: Resting Contraction intensity: Mild Status status: Category l Heart Rate Baseline: 125 Monitor Accelerations: Present Monitor Decelerations: Late (Two isolated late decelerations after KIRSTEN placement; resolved) Monitor Variability: Moderate Assessment and Plan Assessment: active labor and induction ongoing Plan: continuous present management Comments: Anticipate
--- NOTE | 2025-03-28 12:11 | PM.OBPRVD ---
Labor & Delivery Delivery date: 03/28/25 Delivery Time: 11:38 Intrapartal Events: None Cervical ripening method: per misoprostal protocol Induction method: per pitocin protocol Delivery monitor: external FHT and external uterine Route of delivery: Episiotomy description: None L&D Laceration Description: Vaginal - 1st Degree (By lateral sulcal lacerations) Delivery repair: chromic Estimated blood loss (mL): 200 Anesthesia Type: Epidural Complications: None Narrative: Following a 2 hour and 18 minutes 2nd stage, the patient delivered spontaneously over an intact perineum a viable female with Apgars of 8/9, weight 3914 g (8 lb 10.1 oz). The was vigorous at and delayed cord clamping performed. No cord entanglement or shoulder dystocia was encountered. Skin to skin contact was initiated immediately after . Once the umbilical cord was doubly clamped and cut, a specimen was obtained for routine studies. The placenta was then easily delivered with gentle cord traction and suprapubic countertraction. Inspection of the placenta revealed an intact placenta with a three-vessel cord and normal insertion. Intravenous Pitocin was initiated immediately prior to delivery of the placenta and bleeding was quickly brought under control. Inspection of the vaginal introitus revealed superficial sulcal tears on both sides of the lateral vaginal salguero and these were easily repaired with 2-0 chromic in a running interlocking stitch. Bleeding was minimal and the delivery process was completed without incident. Both mother and baby tolerated the delivery process well with sponge, needle,and instrument counts correct at the end of the procedure. Baby 1: Infant gender: Female Presentation: vertex Position: Left Occiput Anterior Placenta delivery description: Spontaneous Cord Vessel Description: 3 Vessels score (1 min): 8 score (5 min): 9 weight: 8 lb 10.062 oz Plan for aftercare: Routine care
[2025-03-28] MEDS: DERMOPLAST SPRAY 20% 60 ML 1 SPRAY TOP (13:47)
[2025-03-28] MEDS: IBUPROFEN 600 MG TABLET PO (22:56)
[2025-03-28] MEDS: ACETAMINOPHEN 325 MG TABLET 650 MG PO (22:57)
[2025-03-28] MEDS: LANOLIN OINT 7 GM 1 APPLIC TOP (23:30)
--- NOTE | 2025-03-29 08:01 | P.DS_ITS ---
Discharge Providers Provider Date of admission: 03/27/25 16:39 Discharge Date: 03/29/25 Primary care physician: PAMELA Villanueva Consults: 03/27/25 17:08 Consult to Anesthesiology Urgent Comment: Consulting Provider: Anesthesiologist Reason for consultation: Epidural 03/28/25 12:43 Consult to Customer Logistics Manager Routine Comment: Discharge provider: Misbah Yoon MD Summary Hospital Course Date Patient Seen: 03/29/25 Time Patient Seen: 08:02 Diagnoses: Intrauterine , 40 1+1 weeks gestational age, delivered by spontaneous vaginal Post-dates GBS positive status Hospital Course: Mara was admitted on the evening of 03/27/2025 for cervical ripening with oral misoprostol. Following a single dose of misoprostol, the cervix was sufficiently favorable to initiate Pitocin induction which proceeded without incident following placement of an epidural catheter for pain relief in labor. Patient progressed well into the 2nd stage and delivered spontaneously at 11:38 a.m. on the morning of 03/28/2025 a viable female with Apgars of 8/9 and a weight of 8 lb 10.1 oz. following delivery both mother and baby have done extremely well with the mother experiencing prompt return of bowel and bladder function, she is ambulating independently, tolerating a regular diet, and her pain is well relieved with oral pain medications. She will be discharged at this time to home in an afebrile normotensive condition after counseling regarding precautionary symptoms, limitations of activity, medications, and plans for follow-up which will be in 6 weeks. Medications at discharge will include resumption of all preadmission medication and she will use oral Tylenol and ibuprofen 600 mg p.o. every 6 hours for pain relief. Peripartum Data Laceration Description: Vaginal - 1st Degree (Bilateral sulcal lacerations repaired with CCGS) Episiotomy description: None Procedures: Continuous lumbar epidural Spontaneous vaginal with repair of bilateral first-degree sulcal lacerations complications: none 1: Gender: Female Disposition of : home Status at Discharge Cognitive/behavioral status at discharge: oriented Functional status at discharge: independent ambulation Overall status at discharge: patient is progressing back to baseline Time Spent with Patient Time attestation: Total time spent providing and/or coordinating discharge services: Time spent: Less than 30 minutes Objective Labs 03/27/25 17:00 Exam Const General: cooperative and comfortable Nutritional Appearance: average body habitus Orientation: alert and oriented x3 HENMT Head: normal to inspection, atraumatic and abrasion Ears: hearing grossly normal bilaterally Face and sinus: face symmetric Eyes General: appearance normal, both eyes and all related structures Conjunctivae: conjunctivae normal Sclera: sclerae normal EOM: EOM intact bilaterally Neck Neck: normal visual inspection Resp Effort & Inspection: normal respiratory effort and able to speak in complete sentences GI Inspection: normal to inspection Palpation: soft and no hepatosplenomegaly External Female Exam: other (No significant bleeding noted) Extrem General: no calf tenderness Psych Appearance: grossly normal Mental Status: mental status grossly normal Speech and Movement: speech and movement normal Mood: congruent mood Affect: normal affect Attitude: cooperative Thought Process: normal Thought Content: normal Judgment: judgment good Discharge Plan Discharge Plan Patient Disposition: Home Provider Discharge Comment: Please review the written instructions you received when you were discharged from the hospital. Your follow-up appointment will be scheduled for 6 weeks after your delivery and we look forward to seeing you then. If however in the meantime you have any issues, concerns, or questions, please contact us either by phone at [phone], or via the patient portal. Discharge orders & Medications Prescriptions: New ibuprofen 600 mg Tablet 600 mg PO Q6H Qty: 30 2RF Continued vit-ferrous sulfat-FA 27 mg iron- 0.8 mg tablet 1 tab PO DAILY (DME) breast pump [Smart Pump 3.0 Double Electric] Device See Rx Instructions .Route Qty: 1 0RF Rx Instructions: As directed bupropion HCl [Wellbutrin XL] 300 mg tablet extended release 24 hr 300 mg PO QAM Qty: 90 3RF fluconazole 150 mg tablet 150 mg PO DAILY Follow up/Referrals: Klever Pacheco ARNP [Primary Care Provider, Medical] Misbah Yoon MD [Physician, DRIP PUMPER] - 05/09/25 11:00 am Referral Note: Please check in at 10:30am for your six week appointment with Dr. Yoon. Discharge Health Status Multidrug resistant organism: No MDRO Diet/Activity/Treatments Diet: Diet as Tolerated Activity: As tolerated Other treatments: [id number] Tylenol and/or ibuprofen may be used as needed for additional pain relief. [id number]-[id number] stool softeners and/or MiraLax may be used as needed for constipation. Skin/Wound/Dressing Care Report to your healthcare provider any signs of infection, such as:: chills, fever, increased pain, unusual drainage and unusual redness Dressing: N/A Visit Report/Discharge Packet Instructions: DI for Labor and Delivery, Vaginal , DI for and Nipple Soreness Discharge Data Primary Care Provider: Klever Pacheco
[2025-03-29] MEDS: ACETAMINOPHEN 325 MG TABLET 650 MG PO (08:46)
[2025-03-29] MEDS: IBUPROFEN 600 MG TABLET PO (08:46)
== END 2025-03-29 14:30 | disposition home or self-care (01) | DRG 807 ==
PROVIDERS: Admitting Provider Obstetrics & Gynecology; PCP Registered Nurse Diabetes Educator; Referring Provider Obstetrics & Gynecology; Visit Provider Obstetrics & Gynecology
DX: O48.0 Post-term pregnancy (principal); Z37.0 Single live birth; Z3A.41 41 weeks gestation of pregnancy; O99.824 Streptococcus B carrier state complicating childbirth; O70.0 First degree perineal laceration during delivery
CPT/HCPCS: 36415; 59050; 59200; 59400; 59409; 85025; 86850; 86900; 86901; G0379; J0689; J2590